=== PATIENT | female | born 1990 | race Caucasian/White ===

== ENCOUNTER 2017-11-12 21:11 | Emergency (ER) | payer OTHER ==
[~2017-11-12] VITALS: Ht 165.1 cm; Wt 113.4 kg
[~2017-11-12 21:11] MED LIST: CIPRO500 MG PO; HYDROCODONE-AP1 EAC6 PO; KEFLEX500 M1 PO; KEFLEX500 MG PO; NAPROSYN500 MG PO; NOHOMEMEDICATIONS; NORCO 5-325 TA1 EACH PO; PYRIDIUM100 M1 PO
[2017-11-12] MEDS ORDERED: KEFLEX500 M1 PO (21:43)
[2017-11-12 21:56] VITALS: BP 126/63
== END 2017-11-12 21:57 | disposition home or self-care (01) ==
LOC: M.ERS 21:11
DX: H66.006 Acute suppurative otitis media without spontaneous rupture of ear drum, recurrent, bilateral (principal); Z88.0 Allergy status to penicillin; Z90.49 Acquired absence of other specified parts of digestive tract